=== PATIENT | female | born 1970 | race Caucasian/White ===

== ENCOUNTER 2022-06-06 19:52 | Emergency (ER) | payer OTHER, SELFPAY ==
[2022-06-06 19:53] VITALS: BP 168/81; PULSE 120; RESP 14; TEMP 36.7; O2SAT 94; BMI 42.5
--- NOTE | 2022-06-06 20:10 | XR_ITS ---
PROCEDURE INFORMATION: Exam: XR Right Shoulder Exam date and time: 06/06/2022 8:12 PM Age: 51 years old Clinical indication: Pain; Shoulder; Right TECHNIQUE: Imaging protocol: Radiologic exam of the Right shoulder. Views: 2 or more views. COMPARISON: CR XR CHEST 2V 07/01/2019 6:21 PM FINDINGS: Bones/joints: Osseous alignment is normal. No acute fracture or dislocation seen. No significant arthritic changes are seen. Soft tissues: Normal. IMPRESSION: Negative right shoulder
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
[2022-06-06 21:09] VITALS: BP 168/81; PULSE 98; RESP 18; TEMP 36.6; O2SAT 94
== END 2022-06-06 21:17 | disposition home or self-care (01) ==
PROVIDERS: Emergency Provider Emergency Medicine; PCP Family Medicine
DX: M75.51 Bursitis of right shoulder (principal); F17.210 Nicotine dependence, cigarettes, uncomplicated
CPT/HCPCS: 73030; 99283; 99284

== ENCOUNTER 2024-02-17 18:04 | Emergency (ER) | payer OTHER, SELFPAY ==
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
--- NOTE | 2024-02-17 18:07 | ECG_ITS ---
APPROVED REPORT Exam: Resting ECG HR:115 bpm ECG Measurements Heart Rate 115 AXES MA 168 P 64 QRSd 124 QRS -28 QT 332 T 108 QTc 400 Conclusion SINUS TACHYCARDIA WITH OCCASIONAL VENTRICULAR PREMATURE COMPLEXES MODERATE INTRAVENTRICULAR CONDUCTION DELAY [105+ ms QRS DURATION, 80+ ms Q/S IN V1/V2, NO Q AND 60+ ms R IN I/aVL/V5/V6] ST DEVIATION AND MODERATE T-WAVE ABNORMALITY, CONSIDER LATERAL ISCHEMIA [-0.1+ mV T-WAVE IN I/aVL/V5/V6] Electronically signed by : MIKE ROMAN, 02/17/2024 22:18:24
[2024-02-17 18:10] VITALS: BMI 42.7
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
[2024-02-17 18:19] VITALS: BP 71/42; PULSE 106; RESP 19; TEMP 36.6; O2SAT 98
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
--- NOTE | 2024-02-17 18:21 | PC.NURSE ---
RT notified of VBG order
[2024-02-17 18:29] LABS: Lactate Venous 1.9 mmol/L (0.4-2.0); VBG Base Excess -0.1 mmol/L (-2.4-2.3); VBG HCO3 24.1 mmol/L (23-30); VBG Oxygen Saturation 97.7 % (50-70); VBG PCO2 36.7 mmol/L (35-51); VBG PH 7.44 mmol/L (7.31-7.41); VBG PO2 100.9 mmol/L (28-40); VBG Total CO2 25.2 mmol/L (23-27)
[2024-02-17] MEDS: TET/DIPHTH/PERT-ADULT 0.5ML SYRINGE 0.5 ML IM (18:36)
[2024-02-17] MEDS: ACETAMINOPHEN 1,000MG/100ML VIAL 1000 MG IV (18:36)
[2024-02-17] MEDS: ONDANSETRON 4MG/2ML VIAL 4 MG IV (18:40)
--- NOTE | 2024-02-17 18:41 | PC.NURSE ---
calling [facility] at this time.
[2024-02-17 18:42] LABS: Basophils % 0.3 % (0.1-2.0); Eosinophils # 0.2 K/mm3 (0.0-0.4); Eosinophils % 2.1 % (0.1-12.0); Hematocrit 33.6 % (37.0-47.0); Hemoglobin 10.6 g/dL (12.2-16.2); Lymphocytes # 2.3 K/mm3 (0.7-4.5); Lymphocytes % 31.6 % (10-50); Mean Corpuscular HGB Conc 31.5 g/dL (31.8-35.4); Mean Corpuscular Hemoglobin 29.1 pg (27.0-31.2); Mean Corpuscular Volume 92.3 fl (81-99); Mean Platelet Volume 6.8 fl (7.4-10.4); Monocytes # 0.3 K/mm3 (0.1-1.0); Monocytes % 4.5 % (1.7-9.3); Neutrophils # 4.6 K/mm3 (1.8-7.8); Neutrophils % 61.5 % (37.0-80.0); Platelet Count 243 K/mm3 (142-424); Red Blood Count 3.63 M/mm3 (4.20-5.40); Red Cell Distribution Width 14.8 % (11.5-17.5); White Blood Count 7.4 K/mm3 (4.8-10.8)
--- NOTE | 2024-02-17 18:42 | PC.NURSE ---
[facility] checking flight status. Waiting extraction machine operator back.
[2024-02-17 18:44] LABS: Albumin Level 3.6 g/dl (3.5-5.0); Chloride 111 mmol/L (98-107)
--- NOTE | 2024-02-17 18:44 | PC.NURSE ---
Dr. Dee speaking to [facility].
--- NOTE | 2024-02-17 18:44 | PC.NURSE ---
[facility] accepted. 40 mins out.
[2024-02-17 18:45] LABS: Potassium 4.2 mmoL/L (3.5-5.1); Sodium 140 mmol/L (136-145)
[2024-02-17] MEDS: FENTANYL 250MCG/5ML VIAL 25 MCG IV (18:45)
[2024-02-17 18:47] LABS: Alanine Aminotransferase 19 U/L (12-78); Alkaline Phosphatase 100 U/L (38-126); Anion Gap 7.2 mEq/L (5-15); Aspartate Amino Transferase 26 U/L (14-36); Bilirubin,Total 0.4 mg/dl (0.2-1.3); Blood Urea Nitrogen 24 mg/dl (7-17); Carbon Dioxide 26 mmol/L (22.0-30.0); Creatinine Clearance Estimated 69 mL/min (50-200); Estimated Glomerular Filt Rate 74 ml/min (>60); GFR (African American) 90 ML/MIN (>60); Lipase 73 U/L (23-300)
[2024-02-17 18:48] LABS: Albumin/Globulin Ratio 0.9 (1.1-1.8); Calcium 9.3 mg/dl (8.4-10.2); Globulin 3.8 g/dL (1.3-3.2); Glucose 145 mg/dl (74-100); Total Protein,Serum 7.4 g/dl (6.3-8.2)
--- NOTE | 2024-02-17 18:49 | PC.NURSE ---
[facility] here for ground transport, [facility] cancelled.
--- NOTE | 2024-02-17 18:51 | PC.NURSE ---
Pt daughter, Natali, made aware that she will be transferred to .
--- NOTE | 2024-02-17 18:53 | PC.NURSE ---
called report to padilla lópez at [facility]
[2024-02-17] MEDS: LACTATED RINGERS 1000ML 1,000 ML 999 ML IV ×2 (18:54)
[2024-02-17 18:59] VITALS: BP 132/94; PULSE 69; RESP 13; TEMP 36.6
[2024-02-17 19:04] LABS: Activated Partial Thrombo Time 22.2 seconds (22.8-30.6); INR 0.86 (0.9-1.1); Prothrombin Time 9.8 seconds (10.1-12.5)
[2024-02-17 19:10] LABS: Troponin I < 0.01 ng/ml (0.00-0.034)
== END 2024-02-17 19:00 | disposition short-term general hospital (02) ==
PROVIDERS: Emergency Provider Emergency Medicine; PCP Nurse Practitioner
DX: S01.01XA Laceration without foreign body of scalp, initial encounter (principal); S80.01XA Contusion of right knee, initial encounter; S80.12XA Contusion of left lower leg, initial encounter; R57.9 Shock, unspecified; R00.0 Tachycardia, unspecified; R07.9 Chest pain, unspecified; I25.10 Atherosclerotic heart disease of native coronary artery without angina pectoris; E66.01 Morbid (severe) obesity due to excess calories; J44.9 Chronic obstructive pulmonary disease, unspecified; I11.0 Hypertensive heart disease with heart failure; I50.9 Heart failure, unspecified; E11.40 Type 2 diabetes mellitus with diabetic neuropathy, unspecified; E78.5 Hyperlipidemia, unspecified; Z79.02 Long term (current) use of antithrombotics/antiplatelets; Z79.82 Long term (current) use of aspirin; V03.19XA Pedestrian with other conveyance injured in collision with car, pick-up truck or van in traffic accident, initial encounter; Y92.410 Unspecified street and highway as the place of occurrence of the external cause; F17.210 Nicotine dependence, cigarettes, uncomplicated; Z23 Encounter for immunization
CPT/HCPCS: 70450; 71045; 72125; 72170; 80053; 82803; 83690; 84484; 85025; 85610; 85730; 86850; 90471; 90715; 93005; 96374; 96375; 99291; J0131; J2405; J3010; J7120

== ENCOUNTER 2024-10-29 20:10 | Emergency (ER) | payer OTHER, SELFPAY ==
[2024-10-29 20:21] VITALS: BP 143/81; PULSE 97; RESP 18; TEMP 36.5; O2SAT 96; BMI 39.3
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
[2024-10-29] MEDS: METHOCARBAMOL 500MG TABLET 500 MG PO (20:48)
[2024-10-29] MEDS: LIDOCAINE 5% TRANSDERMAL PATCH 1 EACH TD (20:48)
[2024-10-29] MEDS: IBUPROFEN 400 MG TABLET 800 MG PO (20:48)
[2024-10-29] MEDS: ACETAMINOPHEN 500MG TAB 1000 MG PO (20:48)
[2024-10-29] MEDS: DEXAMETHASONE 4MG/ML 1ML VIAL 10 MG IM (20:50)
[2024-10-29 21:00] VITALS: BP 129/89; PULSE 96; RESP 16; O2SAT 95
[2024-10-29 21:25] VITALS: BP 129/89; PULSE 96; RESP 15; TEMP 36.5; O2SAT 95
== END 2024-10-29 21:28 | disposition home or self-care (01) ==
PROVIDERS: Emergency Provider Student in an Organized Health Care Education/Training Program; PCP Student in an Organized Health Care Education/Training Program
DX: M54.50 Low back pain, unspecified (principal); X50.0XXA Overexertion from strenuous movement or load, initial encounter
CPT/HCPCS: 96372; 99283; J1100